=== PATIENT | female | born 1965 | race Two or more races ===

== ENCOUNTER 2021-07-20 06:21 | Emergency (ER) | payer SELFPAY ==
[~2021-07-20] VITALS: Ht 157.5 cm; Wt 81.6 kg
[2021-07-20] MEDS ORDERED: IBUPROFEN 800 MG TAB PO ONE (07:45)
[2021-07-20 08:16] VITALS: BP 150/73
== END 2021-07-20 08:28 | disposition home or self-care (01) ==
LOC: ER 06:21
DX: S92.414A Nondisplaced fracture of proximal phalanx of right great toe, initial encounter for closed fracture (principal); W01.0XXA Fall on same level from slipping, tripping and stumbling without subsequent striking against object, initial encounter; Y93.89 Activity, other specified; Y92.89 Other specified places as the place of occurrence of the external cause; Y99.8 Other external cause status
CPT/HCPCS: 73630; 99283; L3260